=== PATIENT | male | born 1950 | race Caucasian/White ===

== ENCOUNTER 2019-10-21 13:56 | Emergency (ER) | payer MEDICARE, OTHER ==
--- NOTE | 2019-10-21 15:41 | RAD ---
Exam:3 views left ankle HISTORY: Pain. COMPARISON: None FINDINGS: Mild soft tissue swelling. Preserved joint spaces. No fracture. IMPRESSION: Soft tissue swelling. No fracture.
== END 2019-10-21 15:40 | disposition home or self-care (01) ==
LOC: ERS 13:56
DX: M25.572 Pain in left ankle and joints of left foot (principal); E78.5 Hyperlipidemia, unspecified; E78.00 Pure hypercholesterolemia, unspecified; I10 Essential (primary) hypertension; K21.9 Gastro-esophageal reflux disease without esophagitis

== ENCOUNTER 2022-07-21 12:25 | Outpatient (CLI) | payer MEDICARE, OTHER | END 2022-07-21 12:26 | disposition home or self-care (01) | LOC: TBSIIMAG 12:25 | PROVIDERS: ATTEND Neurological Surgery | DX: M48.062 Spinal stenosis, lumbar region with neurogenic claudication (principal); M47.816 Spondylosis without myelopathy or radiculopathy, lumbar region; M47.817 Spondylosis without myelopathy or radiculopathy, lumbosacral region; M48.07 Spinal stenosis, lumbosacral region | CPT/HCPCS: 72148 ==